=== PATIENT | female | born 1950 | race Caucasian/White ===

== ENCOUNTER 2018-08-27 12:16 | Outpatient (CLI) | payer OTHER ==
[2018-08-27] MEDS ORDERED: SIMVASTATIN10 MG PO (15:48)
== END 2018-08-27 20:02 | disposition home or self-care (01) ==
LOC: RAD 12:16
DX: D12.0 Benign neoplasm of cecum (principal); K62.0 Anal polyp

== ENCOUNTER 2018-08-27 14:15 | Inpatient (IN) | payer OTHER ==
[~2018-08-27] VITALS: Ht 160 cm; Wt 68.0 kg
[2018-08-27] MEDS ORDERED: SIMVASTATIN10 MG PO (15:48)
[2018-09-01] MEDS ORDERED: GAS RELIEF125 MG PO (10:39)
[2018-09-01] MEDS ORDERED: INTESTINEX680 M1 PO (10:39)
[2018-09-01] MEDS ORDERED: LEVSIN/SL0.125 MG SL (10:40)
== END 2018-09-01 12:28 | disposition home or self-care (01) | DRG 331 ==
LOC: EDUNIT# 14:15 → O/R 08-29 06:48 → SURG 08-29 06:48 → SURH 08-29 09:30 → SURG 08-29 17:30
PROVIDERS: Surgery
PROC: 0DBQ7ZX Excision of Anus, Via Natural or Artificial Opening, Diagnostic (ICD-10-PCS; 2018-08-29)
PROC: 07TC4ZZ Resection of Pelvis Lymphatic, Percutaneous Endoscopic Approach (ICD-10-PCS; 2018-08-29)
PROC: 0DTF4ZZ Resection of Right Large Intestine, Percutaneous Endoscopic Approach (ICD-10-PCS; principal; 2018-08-29 09:30)
DX: C18.0 Malignant neoplasm of cecum (principal); D12.9 Benign neoplasm of anus and anal canal; E78.00 Pure hypercholesterolemia, unspecified

== ENCOUNTER 2020-01-16 05:55 | Day surgery (SDC) | payer OTHER ==
[~2020-01-16 05:55] MED LIST: GAS RELIEF125 MG PO; INTESTINEX680 M1 PO; LEVSIN/SL0.125 MG SL; SIMVASTATIN10 MG PO
== END 2020-01-16 09:50 | disposition home or self-care (01) ==
LOC: AMB-ENDOS 05:55
DX: D12.3 Benign neoplasm of transverse colon (principal)